=== PATIENT | male | born 1980 | race Caucasian/White ===

== ENCOUNTER 2017-02-26 03:11 | Emergency (ER) | payer MEDICAID ==
[~2017-02-26 03:11] MED LIST: ASPIR-LOW81 M1 PO; ECO81 PO; LOPRESSOR50 MG PO; PRI20 PO; PROTECT IRON1 TAB PO; V10 PO; ZES10 PO
[2017-02-26 06:13] VITALS: BP 165/92
== END 2017-02-26 06:14 | disposition home or self-care (01) ==
LOC: ED 03:11
DX: K08.89 Other specified disorders of teeth and supporting structures (principal); I10 Essential (primary) hypertension